=== PATIENT | female | born 1975 | race Caucasian/White ===

== ENCOUNTER 2021-11-07 11:07 | Observation (INO) | payer OTHER ==
[~2021-11-07] VITALS: Ht 167.6 cm; Wt 111.2 kg
[2021-11-07 13:12] VITALS: BP 117/68
[2021-11-07] MEDS ORDERED: MELATONIN 3 MG TABLET PO PRN (13:15)
[2021-11-07] MEDS ORDERED: ONDANSETRON 4 MG (ZOFRAN) ORAL DISSOLVE TAB PO PRN (13:15)
[2021-11-07] MEDS ORDERED: ANTACID SUSP 30 ML UDC (MYLANTA) PO PRN (13:15)
[2021-11-07] MEDS ORDERED: diphenhydrAMINE 25 MG TAB (BENADRYL) PO PRN (13:15)
[2021-11-07] MEDS ORDERED: ONDANSETRON 4 MG/2 ML (SDV) Z0FRAN IV PRN (13:15)
[2021-11-07] MEDS ORDERED: cefTRIAXone 2,000 MG in NS (IVPB) 50 ML IV SCH (13:15)
[2021-11-07] MEDS ORDERED: polyethylene glycoL POWDER 17 GM (MIRALAX) PACK PO PRN (13:15)
[2021-11-07] MEDS ORDERED: ACETAMINOPHEN 325 MG TABLET PO PRN (13:15)
[2021-11-07] MEDS: LACTATED RINGERS 1,000 ML IV SCH ×2 (13:43→20:06)
[2021-11-07] MEDS ORDERED: metroNIDAZOLE 500MG/100ML IVPB 100 ML IV SCH (14:00)
[2021-11-07] MEDS ORDERED: ENOXAPARIN 40 MG/0.4 ML (LOVENOX) SYR SC SCH (14:00)
[2021-11-07 14:59] VITALS: BP 117/68
[2021-11-07 15:18] LABS: ALBUMIN 3.5 GM/DL (3.2-4.5); BILIRUBIN,TOTAL 0.9 MG/DL (0.1-1.0); CALCIUM 7.9 MG/DL (8.5-10.1); CREATININE SERUM 0.97 MG/DL (0.60-1.30); POTASSIUM 2.9 MMOL/L (3.6-5.0); TOTAL PROTEIN 5.5 GM/DL (6.4-8.2)
[2021-11-07] MEDS ORDERED: RT-ALBUTEROL HFA 8.5 GM INHALER IH PRN (16:00)
[2021-11-07 16:39] VITALS: BP 112/69
[2021-11-07 20:34] VITALS: BP 112/57
[2021-11-07] MEDS ORDERED: KCL 20 MEQ TAB (K-DUR) PO ONE (21:15)
--- NOTE | 2021-11-07 21:22 | History & Physical-Hospitalist ---
History of Present Illness HPI/Chief Complaint Radha Davila is a 46 year old female who was admitted as a transfer from [facility] with vomiting and diarrhea. She has been sick for the past two weeks. Her symptoms started October 22. She has been having nausea, vomiting, and diarrhea since that time. She has not been able to eat and drink well. She has been lightheaded and dizzy. She reports passing out. She has been short of breath with minimal exertion. She was having fevers and chills. She had sore throat. She denies chest pain. She denies abdominal pain. She tested negative for COVID and flu one week ago. Her daughter since tested positive for flu. She has been taking Tamiflu. Source: patient Exam Limitations: no limitations Date Seen 11/07/21 Time Seen by a Provider: 18:35 Attending Physician Candice Farley MD PCP No,Local Physician Referring Physician Date of Admission Nov 07, 2021 at 12:35 Home Medications & Allergies Home Medications Reviewed patient Home Medication Reconciliation performed by pharmacy medication reconciliations optical coating technician and/or nursing. Patients Allergies have been reviewed. Allergies Allergies Coded Allergies No Known Drug Allergies (Unverified11/07/21) Past Tqtbilk-Luudqy-Tgtzxr Hx Patient Social History Tobacco Use?: No Substance use?: No Alcohol Use?: No Pt feels they are or have been: No Current Status Advance Directives: No Communicates: Verbally Primary Language: British Preferred Spoken Language: British Implanted or Applied Medical D: None Family Medical History No Pertinent Family Hx Review of Systems Constitutional: chills, fever EENTM: throat pain Respiratory: cough, short of breath Cardiovascular: syncope Gastrointestinal: diarrhea, nausea, vomiting Genitourinary: decreased output Musculoskeletal: muscle pain, muscle weakness Skin: no symptoms reported Psychiatric/Neurological: No Symptoms Reported Physical Exam Physical Exam Vital Signs Vital Signs - First Documented 11/07/21 11/07/21 11/07/21 13:12 14:59 15:06 Temp 36.6 Pulse 96 Resp 18 B/P (MAP) 117/68 (84) Pulse Ox 100 O2 Delivery Room Air O2 Flow Rate 96.00 FiO2 21 Capillary Refill : Height, Weight, BMI Height: '" Weight: lbs. oz. kg; 39.58 BMI Method: General Appearance: No Apparent Distress, Obese HEENT: PERRL/EOMI, Pharynx Normal Neck: Normal Inspection, Supple Respiratory: Lungs Clear, Normal Breath Sounds, No Respiratory Distress Cardiovascular: Regular Rate, Rhythm, No Edema, No Murmur Gastrointestinal: Normal Bowel Sounds, Non Tender, Soft Extremity: Normal Inspection, Non Tender, No Pedal Edema Neurologic/Psychiatric: Alert, Oriented x3, No Motor/Sensory Deficits, Normal Mood/Affect Skin: Normal Color, Warm/Dry Results Results/Procedures Labs Laboratory Tests 11/07/21 14:48 Patient resulted labs reviewed. Assessment/Plan Admission Diagnosis Sepsis due to gastroenteritis Admission Status: Inpatient Order (span 2 midnights) Reason for Inpatient Admission: Sepsis Assessment and Plan Sepsis Gastroenteritis Lactic acidosis JOSE EDUARDO Hypokalemia COVID-19 Obesity No evidence of bacterial infection No ongoing vomiting or diarrhea IV fluids No hypoxia No treatment needed for COVID at this time Monitor and replace electrolytes as needed DVT prophylaxis: Lovenox Diagnosis/Problems Diagnosis/Problems (1) Sepsis Status: Acute (2) Gastroenteritis Status: Acute (3) JOSE EDUARDO (acute kidney injury) Status: Acute (4) Lactic acidosis Status: Acute (5) Obesity Status: Chronic (6) COVID-19 Status: Acute CANDICE FARLEY MD Nov 07, 2021 21:22
[2021-11-07] MEDS: D5 1/2 NS W/KCL 20 MEQ/L 1,000 ML IV SCH (21:59)
[2021-11-07] MEDS: POTASSIUM CL 10MEQ/50ML IVPB 50 ML IV SCH ×2 (22:00→23:04)
[2021-11-07 23:06] VITALS: BP 118/65
[2021-11-08] MEDS: POTASSIUM CL 10MEQ/50ML IVPB 50 ML IV SCH ×2 (00:38→01:32)
[2021-11-08 03:21] VITALS: BP 120/68
[2021-11-08 05:57] LABS: BASOPHILS # (AUTO) 0.1 10^3/uL (0.0-0.1); BASOPHILS % (AUTO) 1 % (0-10); EOSINOPHILS # (AUTO) 0.4 10^3/uL (0.0-0.3); EOSINOPHILS % (AUTO) 5 % (0-10); HEMATOCRIT 38 % (35-52); HEMOGLOBIN 12.5 g/dL (11.5-16.0); LYMPHOCYTES # (AUTO) 2.5 10^3/uL (1.0-4.0); LYMPHOCYTES % (AUTO) 33 % (12-44); MEAN CORPUSCULAR HEMOGLOBIN 28 pg (25-34); MEAN CORPUSCULAR HGB CONC 33 g/dL (32-36); MEAN CORPUSCULAR VOLUME 85 fL (80-99); MEAN PLATELET VOLUME 11.2 fL (9.0-12.2); MONOCYTES % (AUTO) 13 % (0-12); NEUTROPHILS # (AUTO) 3.5 10^3/uL (1.8-7.8); NEUTROPHILS % (AUTO) 45 % (42-75); PLATELET COUNT 254 10^3/uL (130-400); WHITE BLOOD COUNT 7.8 10^3/uL (4.3-11.0)
[2021-11-08] MEDS ORDERED: KCL 20 MEQ TAB (K-DUR) PO SCH (06:00)
[2021-11-08] MEDS ORDERED: MAGNESIUM 1 GM/100 ML IVPB 100 ML IV SCH (06:00)
[2021-11-08] MEDS ORDERED: POTASSIUM CL 10MEQ/50ML IVPB 50 ML IV SCH (06:00)
[2021-11-08 06:07] LABS: POTASSIUM 3.7 MMOL/L (3.6-5.0)
[2021-11-08 06:08] LABS: CALCIUM 7.7 MG/DL (8.5-10.1)
[2021-11-08 06:12] LABS: CREATININE SERUM 0.81 MG/DL (0.60-1.30)
[2021-11-08 06:14] LABS: MAGNESIUM 1.8 MG/DL (1.6-2.4)
[2021-11-08 07:51] VITALS: BP 114/61
[2021-11-08 11:16] VITALS: BP 106/61
[2021-11-08] MEDS: D5 1/2 NS W/KCL 20 MEQ/L 1,000 ML IV SCH (11:32)
--- NOTE | 2021-11-08 21:14 | Discharge Summary ---
Discharge Summary Hospital Course Problems/Dx: (1) Sepsis Status: Acute (2) Gastroenteritis Status: Acute (3) JOSE EDUARDO (acute kidney injury) Status: Acute (4) Lactic acidosis Status: Acute (5) Obesity Status: Chronic (6) COVID-19 Status: Acute Hospital Course Date of Admission: Nov 07, 2021 at 12:35 Admission Diagnosis: Viral sepsis due to gastroenteritis, COVID-19 Family Physician/Provider: DaniaLocal Physician Date of Discharge: 11/08/21 Discharge Diagnosis: Viral sepsis due to gastroenteritis, COVID-19 Hospital Course: Radha Davila is a 46 year old female who was admitted with viral sepsis due to gastroenteritis. She had a markedly elevated lactic acid on arrival at [facility]. She was also found to be positive for COVID-19. Her nausea, vomiting, and diarrhea resolved. She was not requiring any supplemental oxygen. She was discharged home in stable, improved condition. She should follow up with her PCP in a couple weeks, sometime after she is out of isolation. Labs and Pending Lab Test: Laboratory Tests 11/08/21 05:40: White Blood Count 7.8, Red Blood Count 4.45, Hemoglobin 12.5, Hematocrit 38, Mean Corpuscular Volume 85, Mean Corpuscular Hemoglobin 28, Mean Corpuscular Hemoglobin Concent 33, Red Cell Distribution Width 13.6, Platelet Count 254, Mean Platelet Volume 11.2, Immature Granulocyte % (Auto) 4, Neutrophils (%) (Auto) 45, Lymphocytes (%) (Auto) 33, Monocytes (%) (Auto) 13H, Eosinophils (%) (Auto) 5, Basophils (%) (Auto) 1, Neutrophils # (Auto) 3.5, Lymphocytes # (Auto) 2.5, Monocytes # (Auto) 1.0, Eosinophils # (Auto) 0.4H, Basophils # (Auto) 0.1, Immature Granulocyte # (Auto) 0.3H, Sodium Level 142, Potassium Level 3.7, Chloride Level 110H, Carbon Dioxide Level 20L, Anion Gap 12, Blood Urea Nitrogen 8, Creatinine 0.81, Estimat Glomerular Filtration Rate 75, BUN/Creatinine Ratio 10, Glucose Level 103, Calcium Level 7.7L, Magnesium Level 1.8 Home Meds Active No Active Prescriptions or Reported Medications Assessment/Pt Instructions See instructions Discharge Instructions Discharge Diet: No Restrictions Activity as Tolerated: Yes Discharge Physical Examination Vital Signs Vital Signs Date Time Temp Pulse Resp B/P (MAP) Pulse Ox O2 Delivery O2 Flow Rate FiO2 11/08/21 12:45 85 11/08/21 11:16 37.2 20 106/61 (76) 95 Room Air 11/07/21 15:06 96.00 11/07/21 14:59 21 Allergies: Coded Allergies: No Known Drug Allergies (Unverified , 11/07/21) Discharge Summary Date of Admission Nov 07, 2021 at 12:35 Date of Discharge Nov 08, 2021 at 12:50 Discharge Date: Nov 08, 2021 Discharge Time: 12:50 Admission Diagnosis Viral sepsis due to gastroenteritis Discharge Diagnosis Viral sepsis Gastroenteritis COVID-19 Lactic acidosis (1) Viral sepsis Status: Acute (2) Gastroenteritis due to COVID-19 virus Status: Acute (3) JOSE EDUARDO (acute kidney injury) Status: Acute (4) Lactic acidosis Status: Acute (5) Obesity Status: Chronic (6) COVID-19 Status: Acute ALEX FARLEY MD Nov 08, 2021 21:14
--- NOTE | 2021-11-11 13:24 | Physician Query Clarification ---
PQ-Further Specificity Admission/Discharge Admission Date: Nov 07, 2021 at 12:35 Discharge Date: Nov 08, 2021 at 12:50 Dr. Farley, The medical record reflects the following clinical scenario: History/Risk Factors: Sepsis, gastroenteritis, covid, JOSE EDUARDO Clinical Findings: N/V/D, dizzy, SOB, fever/chills, no evidence of bacterial infection Treatment: IV Ceftriaxone, IV Metronidazole Question: Can you further specify the type of gastroenteritis per the clinical indicators above? Please document a response in the Progress Notes or Discharge Summary. 1. non infectious gastroenteritis 2. viral gastroenteritis 3. infectious gastroenteritis 4. Other, with explanation of the clinical findings. 5. Clinically undetermined, no explanation for the clinical findings. PHYSICIAN RESPONSE Can you specify per above: 2 Please remember a lack of response to the above will prompt a phone page by [facility]/Coding staff. In responding to this query, please exercise your independent professional judgment. The purpose of this communication is to more accurately reflect the complexity of your patients condition. The fact that a question is asked does not imply that any particular answer is desired or expected. Thank you for your timely response to this clarification. Requestors name: Baldomero THIS PHYSICIAN QUERY FORM IS A PERMANENT PART OF THE MEDICAL RECORD BALDOMERO CLARKE Nov 11, 2021 13:24 ALEX FARLEY MD Nov 25, 2021 20:12
== END 2021-11-08 12:05 | disposition home or self-care (01) ==
LOC: EDSTATUS 12:25 → UNDOADMIN 12:35 → 4TH 12:35 → UNDODISIN 11-08 12:50
PROVIDERS: ADMIT Internal Medicine; ATTEND Internal Medicine
DX: A41.89 Other specified sepsis (principal); K52.9 Noninfective gastroenteritis and colitis, unspecified; U07.1 COVID-19; E87.2 Acidosis; N17.9 Acute kidney failure, unspecified; E87.6 Hypokalemia; E66.9 Obesity, unspecified; Z68.39 Body mass index [BMI] 39.0-39.9, adult
CPT/HCPCS: 36415; 80048; 80053; 83735; 84145; 85025; 94760; G0378